=== PATIENT | male | born 1980 | race Caucasian/White ===

== ENCOUNTER → 2021-12-29 | Outpatient (CLI) | payer OTHER ==
[~2021-12-29] MED LIST: GADOTERATE 5 MMOL/10ML VIAL. INT ART ONE; IOHEXOL 300 MG/ML 50 ML VIAL. INT ART ONE; LIDOCAINE 1% Multi-Dose 20 ML VIAL. ID ONE
--- NOTE | 2021-12-29 13:01 | KCIC ---
Exam Date: 12/29/2021 10:55 AM MRI RIGHT UPPER EXTREMITY JOINT WITH IV CONTRAST Indication: Reason: RIGHT SHOULDER PAIN / Spl. Instructions: / History: Right shoulder pain. Limited ROM 1.5 yrs.. MR ARTHROGRAM SHOULDER WITH CONTRAST TECHNIQUE: Multiplanar MR imaging of the shoulder was performed following the intra-articular injecti on of both iodinated contrast and dilute gadolinium contrast. The fluorscopic-guided shoulder injec tion procedure is reported separately. FINDINGS: There is a superior labral anterior to posterior tear (SLAP tear). Long head of the biceps tendon is intact. Supraspinatus and infraspinatus tendinopathy is noted. No full-thickness rotator cuff tendon tear is identified. The supraspinatus, infraspinatus, teres mi nor and subscapularis tendons are otherwise intact. Rotator cuff musculature demonstrates normal sig nal and bulk. Mild degenerative changes are seen at the AC joint. There is an intact type II acromion. No signifi cant fluid or contrast extension is seen in the subacromial/subdeltoid bursa to suggest bursitis or f ull-thickness rotator cuff tendon tear. Moderate degenerative changes are seen at the glenohumeral joint with large osteophytes and moderate partial thickness chondral loss. Bone marrow demonstrates benign signal on all sequences without acu te fracture. IMPRESSION: There is a superior labral anterior to posterior tear (SLAP tear). Supraspinatus and infraspinatus tendinopathy is noted without full-thickness rotator cuff tendon tear . Moderate degenerative changes noted at the glenohumeral joint with large osteophytes and moderate par tial thickness chondral loss. Electronically signed by: Kang Reyes MD (12/29/2021 12:58 PM) [id number]
--- NOTE | 2021-12-29 13:20 | KCIC ---
Exam Date: 12/29/2021 10:15 AM DG ARTHROGRAM SHOULDER RIGHT Indication: Reason: Right shoulder pain. Limited ROM 1.5 yrs. / Spl. Instructions: 20mL saline,0.2mL Clariscan,5mL Omni 300, 6 sec fl., 2 images. / History: . RIGHT SHOULDER FLUOROSCOPIC GUIDED NEEDLE PLACEMENT AND IODINATED CONTRAST AND DILUTE GADOLINIUM CONT RAST INJECTION FOR MR ARTHROGRAM WITH CONTRAST PROCEDURE: A timeout was performed to ensure that the patient's name and procedure matched our infor mation. After the risks, benefits, personnel, and alternatives to the procedure were discussed with t piyush patient, the patient elected to proceed and signed the consent form. Under fluoroscopic evaluation , a suitable target was selected and the overlying skin was marked. The patient was prepped and drape d in the usual sterile fashion. Local anesthesia with 5.0 cc of lidocaine was given. Under fluoroscop ic guidance, a 20 gauge spinal needle was inserted through the anesthetized track into the RIGHT shou lder joint. Intra-articular location was confirmed by a test injection of 0.[address] The joint was then injected with 12 cc of a dilute gadolinium solution (2:200 gadolinium:saline). Total fluoroscopy time: 6 seconds Fluoroscopic images: 0 The patient tolerated the procedure very well without any immediate adverse consequence. Spot images demonstrate successful injection of the joint. IMPRESSION: Successful fluoroscopic guided needle placement and injection of both iodinated contrast and dilute gadolinium contrast into the RIGHT shoulder joint for MR shoulder arthrogram with ladias t. Electronically signed by: Kang Reyes MD (12/29/2021 1:17 PM) [id number]
== END | disposition home or self-care (01) ==
LOC: KCIC 09:47
PROVIDERS: ATTEND Physician Assistant
DX: M25.511 Pain in right shoulder (principal); S43.431A Superior glenoid labrum lesion of right shoulder, initial encounter; M24.111 Other articular cartilage disorders, right shoulder; Z79.899 Other long term (current) drug therapy; X58.XXXA Exposure to other specified factors, initial encounter; Y93.89 Activity, other specified; Y92.89 Other specified places as the place of occurrence of the external cause; Y99.8 Other external cause status
CPT/HCPCS: 23350; 73222; 77002; A9575; J3490; Q9967